=== PATIENT | female | born 1965 | race Caucasian/White ===

== ENCOUNTER → 2024-01-05 | Day surgery (SDC) | payer OTHER ==
[~2024-01-05] MED LIST: DIOVAN80 MG PO; LEVOTHYROXINE75 MCG PO; LIDOCAINE HCL 2% LOCAL INJ 5 ML SDV VIAL INJ ONE; MIDAZOLAM HCL 2 MG/2 ML VIAL ONE; PROPOFOL IV EMULSION 10 MG/ML 20 ML VIAL ONE; SIMETHICONE 40 MG/0.6 ML BTL ONE
[2024-01-05] MEDS: LACTATED RINGER'S 1,000 ML ONE (09:57)
[2024-01-05 13:05] VITALS: BP 128/78; PULSE 79; RESP 18; O2SAT 97
== END | disposition home or self-care (01) ==
LOC: OR 09:31
PROVIDERS: ATTEND Internal Medicine Gastroenterology
DX: Z12.11 Encounter for screening for malignant neoplasm of colon (principal); D12.3 Benign neoplasm of transverse colon; D12.4 Benign neoplasm of descending colon; K57.30 Diverticulosis of large intestine without perforation or abscess without bleeding; K64.1 Second degree hemorrhoids; Z87.19 Personal history of other diseases of the digestive system; I10 Essential (primary) hypertension; E03.9 Hypothyroidism, unspecified; U09.9 Post COVID-19 condition, unspecified; R05.9 Cough, unspecified; Z79.899 Other long term (current) drug therapy; Z68.30 Body mass index [BMI] 30.0-30.9, adult; Z80.0 Family history of malignant neoplasm of digestive organs
CPT/HCPCS: 45380; 45384; 93005; J2001; J2250; J2704; J7121; 45378

== ENCOUNTER 2024-02-25 10:46 | Emergency (ER) | payer OTHER ==
[~2024-02-25] VITALS: Ht 162.6 cm; Wt 81.8 kg
[~2024-02-25 10:46] MED LIST changes: -LIDOCAINE HCL 2% LOCAL INJ 5 ML SDV VIAL INJ ONE; -MIDAZOLAM HCL 2 MG/2 ML VIAL ONE; -PROPOFOL IV EMULSION 10 MG/ML 20 ML VIAL ONE; -SIMETHICONE 40 MG/0.6 ML BTL ONE
[2024-02-25] MEDS ORDERED: PREMPHASE 0.621 EACH (11:10)
[2024-02-25] MEDS: METRONIDAZOLE 500MG/NS 100ML 100 ML IV ONE (11:30)
[2024-02-25] MEDS: FAMOTIDINE 20 MG/2 ML VIAL IV ONE (11:30)
[2024-02-25] MEDS: ONDANSETRON HCL INJ 2MG/ML 2ML 2 MG/ML VIAL IV ONE (11:30)
[2024-02-25] MEDS: LACTATED RINGER'S 1,000 ML INJ ONE (11:30)
[2024-02-25] MEDS: KETOROLAC TROMETHAMINE 30 MG/ML VIAL IV ONE (11:31)
[2024-02-25] MEDS ORDERED: IOPAMIDOL 370 MG/ML 100 ML INFUS..BTL INJ ONE (11:38)
[2024-02-25] MEDS ORDERED: ULTRAM 50MG50 MG PO (12:37)
[2024-02-25] MEDS ORDERED: METRONIDAZOLE500 MG PO (12:37)
[2024-02-25] MEDS ORDERED: CIPRO500 MG PO (12:37)
[2024-02-25] MEDS ORDERED: TYLENOL325 MG PO (12:37)
[2024-02-25] MEDS ORDERED: ONDANSETRON ODT4 MG PO (12:37)
[2024-02-25] MEDS: LEVOFLOXACIN 500 MG TAB PO ONE (12:59)
[2024-02-25 13:04] VITALS: PULSE 74; RESP 16; TEMP 97.9; O2SAT 95
== END 2024-02-25 13:41 | disposition home or self-care (01) ==
LOC: FSED 10:51
DX: R10.32 Left lower quadrant pain (principal); K57.32 Diverticulitis of large intestine without perforation or abscess without bleeding; D72.829 Elevated white blood cell count, unspecified; I10 Essential (primary) hypertension; E03.9 Hypothyroidism, unspecified
CPT/HCPCS: 74177; 80053; 85025; 96374; 96375; 99284; J1885; J2405; J7121; Q9967